=== PATIENT | male | born 1975 | race Caucasian/White ===

== ENCOUNTER 2020-02-22 00:38 | Emergency (ER) | payer BC ==
[~2020-02-22] VITALS: Ht 175.3 cm; Wt 131.5 kg
[2020-02-22 00:47] VITALS: BP 150/81; Ht 175.3 cm; Wt 131.5 kg
== END 2020-02-22 00:48 | disposition home or self-care (01) ==
LOC: ED 00:38
DX: M25.552 Pain in left hip (principal)